=== PATIENT | female | born 1980 | race Caucasian/White ===

== ENCOUNTER 2020-03-23 22:50 | Emergency (ER) | payer OTHER ==
[~2020-03-23] VITALS: Ht 175.3 cm; Wt 62.0 kg
--- NOTE | 2020-03-23 22:56 | NUR ---
BIB GUARDS FROM [facility]. PT RELEASED FROM [facility] TODAY BUT FOUND TRYING TO TIE PANTS AROUND NECK, LEGALLY HOLD INITATED BEFORE ARRIVAL. PT ALSO COMPLAINING OF R HAND PAIN. PT DRESSED IN HOSPITAL GOWN, ALL PERSONAL BELOINGINGS PLACED IN LOCKER. GARAGE DOORS DOWN X2, SITTER AT DOORWAY. PT REQUESTING FOOD.
--- NOTE | 2020-03-24 | NUR ---
PT SLEEPING, NO NEEDS AT THIS TIME. SITTER AT DOORWAY
[2020-03-24 00:17] LABS: MICROSCOPIC INDICATED
[2020-03-24 00:20] LABS: BASOPHILS % (AUTO) 0 % (0-1); EOSINOPHILS % (AUTO) 1 % (1-7); LYMPHOCYTES % (AUTO) 36 % (22-44); MEAN CORPUSCULAR HEMOGLOBIN 31.2 pg (27.0-34.8); MEAN CORPUSCULAR HGB CONC 32.8 g/dL (32.4-35.8); MEAN PLATELET VOLUME 9.3 fL (7.4-10.4); MONOCYTES % (AUTO) 8 % (2-9); NEUTROPHILS % (AUTO) 55 % (42-75); PLATELET COUNT 239 x10^3/uL (130-400); RED CELL DISTRIBUTION WIDTH 13.1 % (9.6-15.2)
[2020-03-24 00:21] LABS: MD NO
[2020-03-24 00:25] LABS: AMPHETAMINE SCREEN, URINE Positive (Negative); BARBITURATE SCREEN, URINE Negative (Negative); BENZODIAZEPINE SCREEN, URINE Negative (Negative); CANNABINOID SCREEN, URINE Negative (Negative); COCAINE SCREEN, URINE Negative (Negative); METHADONE SCREEN, URINE Negative (Negative); OPIATE SCREEN, URINE Negative (Negative)
[2020-03-24 00:28] LABS: ALANINE AMINOTRANSFERASE 21 U/L (12-78); ALBUMIN 4.1 g/dL (3.4-5.0); ANION GAP 6 mmol/L (5-15); CALCIUM 8.5 mg/dL (8.5-10.1); CHLORIDE 107 mmol/L (98-107); CREATININE 0.78 mg/dL (0.55-1.02)
[2020-03-24 00:36] LABS: SALICYLATE LEVEL < 1.7 mg/dL (2.8-20.0)
[2020-03-24 00:39] LABS: ALKALINE PHOSPHATASE 48 U/L (45-117); BILIRUBIN,TOTAL 0.8 mg/dL (0.2-1.0); TOTAL PROTEIN 7.8 g/dL (6.4-8.2)
--- NOTE | 2020-03-24 01:00 | NUR ---
PT SLEEPING. NO NEEDS AT THIS TIME. SITTER AT DOORWAY
--- NOTE | 2020-03-24 02:00 | NUR ---
PT SLEEPING, NO NEEDS AT THIS TIME
[2020-03-24] MEDS ORDERED: LORazepam 2 MG/ML, 1ML IM PRN (02:30)
[2020-03-24] MEDS ORDERED: ZIPRASIDONE 20 MG INJ IM ONE (02:30)
--- NOTE | 2020-03-24 03:06 | NUR ---
PT SLEEPING, NO NEEDS. SITTER AT DOORWAY.
--- NOTE | 2020-03-24 04:08 | NUR ---
REPORT RECIEVED FROM TROY WILLARD. PT RESTING IN [facility], UNDERSTANING OF POC
--- NOTE | 2020-03-24 05:16 | NUR ---
PT RESTING IN BED, GIVEN SANDWICH EARLIER PER REQUEST, RESP EVEN/UNLABORED, IN LINE OF SIGHT OF SITTER
--- NOTE | 2020-03-24 06:24 | NUR ---
PT PLACE IN HOSPITAL BED AND PROVIDED WATER PER REQUEST. IN LINE OF SIGHT OF SITTER
--- NOTE | 2020-03-24 06:47 | NUR ---
TASK RN: PACKET FAXED TO [facility] AND [facility]
--- NOTE | 2020-03-24 06:54 | NUR ---
REPORT GIVEN TO ZHANNA WILLARD
--- NOTE | 2020-03-24 08:04 | NUR ---
PT RESTING ON HOSPITAL BED AT THIS TIME. VSS, NAD NOTED. BREAKFAST TRAY ORDERED. SI PRECAUTIONS OBSERVED.
--- NOTE | 2020-03-24 08:35 | NUR ---
Declined by [facility] due to insurance.
[2020-03-24 09:09] VITALS: BP 120/80
--- NOTE | 2020-03-24 10:00 | NUR ---
PT ALLOWED TO MAKE PHONE CALL PER REQUEST, WHILE ON PHONE CALL PT CUSSING AND YELLING IN HALLWAY, REDIRECTED PT TO PLEASE NOT CUSS AND SCREAM. PT CALMED, FINISHED CALL AND RETURNED TO AT THIS TIME, NO OTHER NEEDS EXPRESSED
--- NOTE | 2020-03-24 11:19 | NUR ---
PT NOW WITH MULTIPLE CALLS MADE FREQUENT TRIPS TO PHONE, PT CONTINUES TO CUSS AND WHEN REDIRECTED PT STATES "FUCK YOU" PT BACK TO AT THIS TIME.
--- NOTE | 2020-03-24 13:10 | NUR ---
ESTEFANIA GOODMAN IN TO EVAL PT, PLAN TO DC LH PT DENIES SI.
== END 2020-03-24 14:16 | disposition home or self-care (01) ==
LOC: ED 23:34
DX: F33.9 Major depressive disorder, recurrent, unspecified (principal); R45.851 Suicidal ideations; F41.9 Anxiety disorder, unspecified; R25.9 Unspecified abnormal involuntary movements; Z91.14 Patient's other noncompliance with medication regimen; Z72.9 Problem related to lifestyle, unspecified
CPT/HCPCS: 36415; 80053; 80307; 81001; 84443; 84703; 85025; 87086; 99285